=== PATIENT | female | born 1975 | race Caucasian/White ===

== ENCOUNTER → 2025-03-01 | Outpatient (CLI) | payer MEDICAID, SELFPAY ==
--- NOTE | 2025-03-01 11:10 | XR_ITS ---
Examination: Bilateral hands, 6 views. Technique: AP, Oblique, Lateral each hand total 6 views Date and time of exam: March 01, 2025 1203 hours INDICATIONS: Bilateral hand pain beginning 2 years ago FINDINGS: Adequate bone density. 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
== END | disposition home or self-care (01) ==
LOC: CDIM 10:44
PROVIDERS: PCP Physician Assistant; Referring Provider Physician Assistant; Visit Provider Physician Assistant
DX: M19.042 Primary osteoarthritis, left hand (principal); M19.041 Primary osteoarthritis, right hand
CPT/HCPCS: 73130

== ENCOUNTER 2025-05-27 13:46 | Emergency (ER) | payer MEDICAID, SELFPAY ==
[2025-05-27 14:12] VITALS: BP 119/76; PULSE 85; RESP 17; TEMP 37.2; O2SAT 98; BMI 23.8
--- NOTE | 2025-05-27 14:17 | XR_ITS ---
Examination: PA chest single view TECHNIQUE: Upright PA chest single view Date and time: May 27, 2025 1438 hours INDICATIONS: Shortness of breath chest pain today FINDINGS: Normal heart size. 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
--- NOTE | 2025-05-27 14:19 | PD.EDADULT ---
ED General RME/HPI General Chief complaint: Shortness of Breath/Dyspnea Stated complaint: SOB, RODRIGUEZ, tired, weak Time Seen by Provider: 05/27/25 14:10 Arrival date/time: 05/27/25 13:46 RME / HPI RME / HPI narrative: see MDM Related Data Home Medications ?Medication ?Instructions ?Recorded ?Confirmed trazodone 100 mg tablet 100 mg PO HS ##0 07/06/17 02/04/22 gabapentin 600 mg tablet 600 mg PO QDAY 11/24/18 02/04/22 simvastatin 40 mg tablet 40 mg PO QHS 11/24/18 02/04/22 sertraline 100 mg tablet 200 mg PO HS 01/17/20 02/04/22 ferrous sulfate 325 mg (65 mg 325 mg PO HS 04/04/20 02/04/22 iron) tablet insulin lispro 100 unit/mL 20 unit subcut TID 10/26/21 02/04/22 subcutaneous solution (Humalog U-100 Insulin) blood sugar diagnostic (True 02/04/22 02/04/22 Metrix Glucose Test Strip) glucagon 1 mg solution for 1 mg subcut QDAY 02/04/22 02/04/22 injection (GlucaGen HypoKit) lancets 28 gauge (TRUEplus Lancets) 02/04/22 02/04/22 Previous Rx's ?Medication ?Instructions ?Recorded albuterol sulfate 90 mcg/actuation 1 puff inhalation QID PRN 03/14/24 aerosol inhaler shortness of breath or wheezing #8.5 grams Allergies Allergy/AdvReac Type Severity Reaction Status Date / Time cephalexin Allergy Severe Swelling Verified 05/27/25 13:54 of Lip/Tongue/Throat metronidazole Allergy Severe THROAT Verified 05/27/25 13:54 SWELLS morphine Allergy Intermediate Rash,itchin Verified 05/27/25 13:54 g Review of Systems Review of Systems Systems Reviewed: All systems reviewed, normal except as documented ED Exam Narrative Physical exam: Physical Exam GENERAL: NAD, AAOx3 HEENT: Moist mucosa. Eyes open, symmetrical, & clear CARDIO: Heart RRR, no obvious murmurs PULM: No noted coughing/dyspnea CTA B/L, no R/W/R GI: Abdomen soft, nondistended, no pain on palpation. BSx4 SKIN/MSK/EXT: No wounds/rashes/edema/amputations, no pain on palpation. Pedal pulses present B/L NEURO: AAOx3, no focal neuro deficits, able to move all 4 extremities Course Course Course Narrative: see MDM Quality Measures none Orders Category Date Time Status Bedside Blood Glucose NOW Care 05/27/25 14:17 Completed Bedside COVID-19 Antigen Test NOW Care 05/27/25 14:17 Completed Bedside Influenza A&B Antigen Test NOW Care 05/27/25 14:18 Completed EKG (ED ONLY) *Do not use* NOW Care 05/27/25 14:17 Completed CXRP [XR chest 1V portable] Stat Exams 05/27/25 14:17 Completed EKG (ED Only) Stat Exams 05/27/25 14:17 Ordered B-Type Natriuretic Peptide Stat Lab 05/27/25 14:46 Completed BHB [Beta Hydroxybutyrate] Stat Lab 05/27/25 14:46 Completed CBC Stat Lab 05/27/25 14:46 Completed Comprehensive Metabolic Panel Stat Lab 05/27/25 14:46 Completed Drug Screen,Urine Stat Lab 05/27/25 14:33 Completed HCG Qualitative,Urine Stat Lab 05/27/25 14:33 Completed LDH (Lactate Dehydrogenase) Stat Lab 05/27/25 14:46 Completed Magnesium Stat Lab 05/27/25 14:46 Completed Partial Thromboplastin Time Stat Lab 05/27/25 14:46 Completed Prothrombin Time with INR Stat Lab 05/27/25 14:46 Completed Troponin I Stat Lab 05/27/25 14:46 Completed Urinalysis Stat Lab 05/27/25 14:33 Completed Vital Signs Vital signs: Vital Signs Temperature 99.0 F 05/27/25 14:12 Pulse Rate 85 05/27/25 14:12 Respiratory Rate 17 05/27/25 14:12 Blood Pressure 119/76 05/27/25 14:12 Pulse Oximetry (%) 98 05/27/25 14:12 Oxygen Delivery Method Room Air 05/27/25 14:12 Discharge Plan Plan Patient Disposition: HOME (Self Care) Prescriptions/Referrals Prescriptions/Med Rec: No Action gabapentin 600 mg tablet 600 mg PO QDAY simvastatin 40 mg tablet 40 mg PO QHS trazodone 100 mg Tablet 100 mg PO HS Qty: 0 sertraline 100 mg Tablet 200 mg PO HS ferrous sulfate 325 mg (65 mg iron) tablet 325 mg PO HS insulin lispro [Humalog U-100 Insulin] 100 unit/mL solution 20 unit subcut TID Patient Comments: inject 20 unit subcutaneously three times a day (DME) True Metrix Glucose Test Strip Strip Patient Comments: use 1 TEST STRIP to TEST BLOOD SUGAR every 4 to 6 hours GlucaGen HypoKit 1 mg recon soln 1 mg subcut QDAY Patient Comments: inject 1 milligram for 1 dose ONLY INTO THE THIGH UPPER ARM or BU... (REFER TO PRESCRIPTION NOTES). (DME) lancets [TRUEplus Lancets] 28 gauge misc Patient Comments: use 1 LANCET to TEST BLOOD SUGAR 4 TO 6 TIMES DAILY albuterol sulfate 90 mcg/actuation HFA aerosol inhaler 1 puff inhalation QID PRN (Reason: shortness of breath or wheezing) Qty: 8.5 0RF Referrals: Alyssia Og PA-C [Primary Care Provider] - In 1 week Problem List Clinical Impression: COVID-19 Patient/Caregiver Discharge Instructions Additional Instructions: Follow up with your primary care physician within 1 week of discharge You have been diagnosed with COVID-19, it is very important to maintain yourself hydrated and take tylenol/ibuprofen as needed for pain/fever. Please continue with your insulin pump with regards to your Diabetes Should your symptoms recur or worsen patient is instructed to return to the ED Print Language: [place] Stand Alone Forms: [employer] Award Info., Work/School Release, Patient Portal Info Letter MDM Narrative MDM hospital course: 49y/o F with PMHx of type 1 diabetes on insulin pump, hx of DKA who presented to the ED due to generalized weakness. Patient apperantly went to clinic today as she was having generalized body aches with shortness of breath, and chest pain. The body aches and shortness of breath has been going for 3-4 days but the chest pain is new today. She states that a few days ago she passed out for 10minutes in her car, but she states is due to low blood sugar which she checked on her glucose monitor. She denies fever, palpitations, abdominal pain, nausea, vomiting. 1422: Labs ordered, EKG ordered, swabs ordered 1510: CBC shows normocytic anemia, CMP unremarkable, troponins negative 1600: swabs result in COVID-19 + Patient can be safely discharged with strict return precautions. Should any symptoms recur or worsen patient is instructed to return to the ED. Clinical Information Provided by patient
[2025-05-27 14:44] LABS: Collection Type, Urine Clean Catch
[2025-05-27 14:59] LABS: HCG Qualitative,Urine Negative
[2025-05-27 15:01] LABS: Bilirubin,Urine Negative (Negative); Blood,Urine Negative (Negative); Clarity,Urine Clear (Clear/Hazy); Color,Urine Yellow (Lt Yel-Yel); Glucose, Urine Negative (Negative); Ketones,Urine Negative (Negative); Leukocyte Esterase,Urine Negative (Negative); Nitrite,Urine Negative (Negative); PH,Urine 6.0 (5.0-7.0); Protein,Urine Trace (Neg - Trace); RBC,Urine 3 /hpf (0-3); Specific Gravity,Urine 1.031 (1.001-1.035); Squamous Epithelial Cell,Urine 3 /hpf (0-5); Urobilinogen,Urine Negative mg/dL (0.0-1.0); WBC,Urine < 1 /hpf (0-5)
[2025-05-27 15:09] LABS: Basophils # (Auto) 0.0 Thou/mm3 (0.0-0.2); Basophils % (Auto) 1 % (0-2.5); Eosinophils # (Auto) 0.1 Thou/mm3 (0.0-0.5); Eosinophils % (Auto) 2 % (0-10); Hematocrit 33.3 % (36.0-46.0); Hemoglobin 11.7 g/dL (12.0-16.0); Immature Granulocytes Auto 0.01 Thou/mm3 (0.00-0.00); Lymphocytes # (Auto) 1.1 Thou/mm3 (1.0-4.8); Lymphocytes % (Auto) 27 % (10-50); Mean Corpuscular HGB Conc 35.1 g/dl (31.0-37.0); Mean Corpuscular Hemoglobin 29.8 pg (25.0-35.0); Mean Corpuscular Volume 85 fL (80-100); Monocytes # (Auto) 0.4 Thou/mm3 (0.0-0.8); Monocytes % (Auto) 10 % (0-12); Neutrophils # (Auto) 2.4 Thou/mm3 (1.8-7.7); Neutrophils % (Auto) 59 % (37-80); Nucleated Red Blood Cell # 0.02 Thou/mm3 (0.00-0.00); Nucleated Red Blood Cell % 1 /100 WBC (0); Platelet Count 178 Thou/mm3 (140-440); RDW Standard Deviation 42.4 fL (36.4-46.3); Red Blood Count 3.93 Miln/mm3 (4.00-5.20); White Blood Count 4.1 Thou/mm3 (3.6-11.0)
[2025-05-27 15:19] LABS: Beta Hydroxybutyrate 0.3 mmol/L (<0.6)
[2025-05-27 15:20] LABS: Amphetamine/Methamp Scrn,U Negative (Negative); Barbiturate Screen,Urine Negative (Negative); Benzodiazepines Screen,Urine Positive (Negative); Benzoylecgonine Screen, Ur Negative (Negative); Fentanyl Screen,Urine Negative (Negative); Opiate Screen,Urine Negative (Negative); THC Screen,Urine Negative (Negative)
[2025-05-27 15:25] LABS: INR 1.0 (0.9-1.3); Partial Thromboplastin Time 27.0 Seconds (22.0-36.0); Prothrombin Time 10.9 Seconds (9.0-12.2)
[2025-05-27 15:29] LABS: B-Type Natriuretic Peptide 70 pg/mL (0-100)
[2025-05-27 15:32] LABS: Alanine Aminotransferase 14 U/L (10-49); Albumin, Serum 4.2 gm/dL (3.5-5.0); Albumin/Globulin Ratio 1.6 (1.2-2.2); Alkaline Phosphatase 71 U/L (46-116); Anion Gap 7 (7-16); Aspartate Amino Transferase 27 U/L (0-34); BUN/Creatinine Ratio 13 Ratio (12-20); Bilirubin,Total 0.3 mg/dL (0.3-1.2); Blood Urea Nitrogen 12 mg/dL (9-23); Calcium 9.1 mg/dL (8.3-10.6); Calcium (Corrected) 9.1 mg/dL (8.5-10.1); Carbon Dioxide 27.0 mMol/L (20.0-31.0); Chloride 107 mMol/L (98-107); Creatinine (Component) 0.9 mg/dL (0.6-1.3); Estimated Creatinine Clearance 66.0 mL/min (>60); Globulin 2.7 gm/dL (2.3-3.5); Glucose 135 mg/dL (74-106); LDH (Lactate Dehydrogenase) 170 U/L (120-246); Magnesium 1.3 mg/dL (1.6-2.6); Osmolality,Calculated 282 (275-295); Potassium 4.0 mMol/L (3.4-5.1); Sodium 141 mMol/L (136-145); Total Protein 6.9 gm/dL (5.7-8.2); Troponin I < 0.002 ng/mL (0.0-0.045); eGFR > 60 See Note
[2025-05-27 16:50] VITALS: PULSE 69; RESP 19; TEMP 37.2; O2SAT 98
== END 2025-05-27 16:50 | disposition home or self-care (01) ==
PROVIDERS: Emergency Provider Student in an Organized Health Care Education/Training Program; PCP Physician Assistant
DX: U07.1 COVID-19 (principal)
CPT/HCPCS: 36415; 71045; 80053; 80307; 81001; 81025; 82010; 83615; 83735; 83880; 84484; 85025; 85610; 85730; 87400; 87811; 93005; 99284